=== PATIENT | female | born 1980 | race Caucasian/White ===

== ENCOUNTER → 2023-02-05 | Outpatient (CLI) | payer BC ==
[2023-02-14 09:29] LABS: HPV GENOTYPE 16 Not Detected; HPV GENOTYPE 18 Not Detected; HPV HIGH RISK Not Detected; HPV SOURCE Cervical
== END | disposition home or self-care (01) ==
LOC: LAB 14:16 → LAB SHORT 14:16
PROVIDERS: Registered Nurse Community Health
DX: Z12.4 Encounter for screening for malignant neoplasm of cervix (principal)
CPT/HCPCS: 87624; G0123

== ENCOUNTER 2024-02-19 21:02 | Emergency (ER) | payer BC ==
[~2024-02-19] VITALS: Ht 167.6 cm; Wt 110.7 kg
[2024-02-19 21:36] VITALS: BP 140/92
[2024-02-19] MEDS ORDERED: KETO10 PO (22:28)
[2024-02-19] MEDS ORDERED: Ketorolac Tromethamine 10 MG Tab PO ONE (22:30)
== END 2024-02-19 22:42 | disposition home or self-care (01) ==
LOC: ER 21:02
DX: K04.7 Periapical abscess without sinus (principal)
CPT/HCPCS: 41800; 99282-25; A9270